=== PATIENT | male | born 1970 | race Hispanic/Latino ===

== ENCOUNTER 2021-03-22 06:50 | Day surgery (SDC) | payer BC ==
[~2021-03-22] VITALS: Ht 157.5 cm; Wt 95.0 kg
[~2021-03-22 06:50] MED LIST: LIPITOR40 MG PO; METFORMIN HCL500 MG PO; VITAMIN D21250 MCG PO
--- NOTE | 2021-03-22 08:57 | NUR ---
03/22/21 0857 Rossana Stark 0852 PATIENT ARRIVES TO PACU AWAKE BUT DROWSY. RESP EVEN AND UNLABORED, OXYGEN TURNED OFF, ROOM AIR SATS >94%. 0855 DR SALAS AT BEDSIDE TALKING WITH PATIENT. PATIENT SLEEPING WHEN NOT STIMULATED.
--- NOTE | 2021-03-27 13:17 | OR ---
[facility] [address], [place] [address] Signed DATE OF OPERATION: 03/22/2021 SURGEON: Aron Salas MD PREOPERATIVE DIAGNOSIS: Family history of colon cancer (mother; currently asymptomatic, last colonoscopy greater than five years ago). POSTOPERATIVE DIAGNOSIS: Diverticulosis including right and left-sided diverticula. PROCEDURE: Total colonoscopy to cecum. ANESTHESIA: Intravenous sedation, fentanyl 100 mcg and Versed 5 mg. INDICATION: This 50-year-old man is a patient of MARGARITA Fuentes. He last underwent colonoscopy greater than five years ago. He has no symptoms of bleeding, diarrhea or constipation. Previous colonoscopy did not identify polyps. He does have family history of colon cancer in his mother, who from the disease. He is admitted at this time to undergo colonoscopy. He understands the risks of bleeding, infection, and perforation. FINDINGS: The prep was excellent. Complete colonoscopy was undertaken to the cecum without question. He had numerous diverticula of the sigmoid and left colon, but scattered diverticula including the cecum also. There was no evidence of polyps, cancer or colitis. PROCEDURE NOTE: The patient was brought to the endoscopy suite and placed in lateral decubitus position, given intravenous sedation to the point of slurred speech and nystagmus. Digital rectal examination was normal. An Olympus video colonoscope was passed in the rectum and manipulated throughout the colon ultimately intubating the cecum itself. The ileocecal valve and appendiceal orifice were normal. There were few scattered diverticula in the cecum. The scope was withdrawn from that point. Examination throughout showed only scattered diverticula Electronically Signed By: ARON SALAS MD 03/27/21 1317 PATIENT NAME: MARK CARD JR OPERATIVE REPORT DATE OF : 72 REPORT #: [id number] PHYSICIAN: ARON SALAS MD PCP: RACQUEL NEWSOME PAC REPORT IS CONFIDENTIAL AND NOT TO BE RELEASED WITHOUT AUTHORIZATION [facility] [address], [place] [address] Signed more so in the left and sigmoid colon. Retroflexed view of the rectum was normal. Scope was removed. The patient was taken to the recovery room in good condition. CONCLUDING DIAGNOSIS: Diverticulosis. PLAN: Recommend a high-fiber diet and repeat colonoscopy in 5 years based on current recommendations (1st degree relative with history of colon cancer). He will return to the ongoing care of MARGARITA Fuentes. MD EH Ruiz/MODL /[id number] cc: MARGARITA Fuentes Copies: ~ Electronically Signed By: ARON SALAS MD 03/27/21 1317 PATIENT NAME: MARK CARD JR OPERATIVE REPORT DATE OF : 72 REPORT #: [id number] PHYSICIAN: ARON SALAS MD PCP: RACQUEL NEWSOME PAC REPORT IS CONFIDENTIAL AND NOT TO BE RELEASED WITHOUT AUTHORIZATION
== END 2021-03-22 09:40 | disposition home or self-care (01) ==
LOC: OPS 06:50 → DS 06:50 → OPS 07:45
PROVIDERS: ATTEND Surgery
PROC: 0DJD8ZZ Inspection of Lower Intestinal Tract, Via Natural or Artificial Opening Endoscopic (ICD-10-PCS; principal; 2021-03-22 07:45)
DX: Z12.11 Encounter for screening for malignant neoplasm of colon (principal); K57.30 Diverticulosis of large intestine without perforation or abscess without bleeding; K64.9 Unspecified hemorrhoids; E78.5 Hyperlipidemia, unspecified; E11.9 Type 2 diabetes mellitus without complications; Z79.84 Long term (current) use of oral hypoglycemic drugs; Z80.0 Family history of malignant neoplasm of digestive organs; Z86.16 Personal history of COVID-19
CPT/HCPCS: 99153; G0500; J2250; J3010; J7121